=== PATIENT | male | born 1950 | race Caucasian/White ===

== ENCOUNTER → 2017-02-02 10:11 | Outpatient (CLI) | payer BC | END | disposition home or self-care (01) | LOC: D.RAD 10:11 | DX: K22.5 Diverticulum of esophagus, acquired (principal) ==

== ENCOUNTER → 2017-04-22 12:56 | Outpatient (CLI) | payer BC | END | disposition home or self-care (01) | LOC: D.RAD 12:56 | DX: R13.12 Dysphagia, oropharyngeal phase (principal) ==

== ENCOUNTER 2020-09-18 08:52 | Day surgery (SDC) | payer MEDICARE ==
[~2020-09-18] VITALS: Ht 188 cm; Wt 90.7 kg
[2020-09-18 09:10] LABS: BASOPHILS 0.9 % (0-2); EOSINOPHILS 2.1 % (0-7); HEMATOCRIT 45.6 % (42.0-54.0); HEMOGLOBIN 15.1 g/dL (13.5-17.5); LYMPHOCYTES 30.4 % (15-50); MCH 29.8 pg (26.0-34.0); MCHC 33.2 g/dL (31.0-37.0); MCV 89.9 fL (80.0-100.0); MEAN PLATELET VOLUME 7.7 fL (7.4-10.4); NEUTROPHILS 53.6 % (40-80); PLATELET COUNT 223 10x3/uL (130-400); RBC 5.07 10x6/uL (4.20-6.10); RDW 13.4 % (11.5-14.5); WBC 3.9 10x3/uL (4.8-10.8)
[2020-09-18 09:17] LABS: CALC OSMOLALITY 280 mosm/kg (275-300); CALCIUM 8.4 mg/dL (8.5-10.1); CARBON DIOXIDE 31.3 mmol/L (21.0-32.0); CHLORIDE - SERUM 103 mmol/L (98-107); GLUCOSE 99 mg/dL (74-106); POTASSIUM - SERUM 4.1 mmol/L (3.5-5.1); SODIUM 140 mmol/L (136-145); UREA NITROGEN 18 mg/dL (7-18); eGFR NON AFRICAN AMERICAN 79 mL/min (90-120)
[2020-09-18] MEDS ORDERED: ATIVAN1 MG PO (10:52)
[2020-09-18] MEDS ORDERED: CARDURA4 MG PO (10:52)
[2020-09-18] MEDS ORDERED: ZANAFLEX4 MG PO (10:53)
[2020-09-18] MEDS ORDERED: ULTRAM50 MG PO (10:53)
[2020-09-18] MEDS ORDERED: ELAVIL25 MG PO (10:54)
[2020-09-18] MEDS ORDERED: NEXIUM40 MG PO (10:54)
[2020-09-18] MEDS ORDERED: PROSCAR5 MG (10:54)
[2020-09-18] MEDS ORDERED: BAYER CHEWABLE81 MG PO (10:55)
[2020-09-18] MEDS ORDERED: IBUPROFEN800 MG PO (10:55)
[2020-09-18 11:18] VITALS: BP 131/65; Ht 188 cm; Wt 90.7 kg
== END 2020-09-18 16:00 | disposition home or self-care (01) ==
LOC: D.OPS 08:52
PROVIDERS: Anesthesiology; ATTEND Surgery
DX: K21.00 Gastro-esophageal reflux disease with esophagitis, without bleeding (principal); Z12.11 Encounter for screening for malignant neoplasm of colon; E78.00 Pure hypercholesterolemia, unspecified; R06.02 Shortness of breath
CPT/HCPCS: 43235; G0121